=== PATIENT | female | born 1945 | race Caucasian/White ===

== ENCOUNTER → 2016-05-27 | Outpatient (CLI) | payer OTHER ==
[~2016-05-27] MED LIST: B-COTAB18 PO; CARV3.12 PO; CARV6.252 PO; CHOL100010 PO; CLR10 PO; CPR500 PO; FURO-85 PO; HYDR0.5T PO; LACT1CAP6 PO; LISI-461 PO; LORA10CA2 PO; MAGN1CAP2 PO; METF1000 PO; MOME50SP5; MTR500 PO; MULT-506 PO; OMEG10007 PO; OMEP20TA PO; ROSU5TAB PO; UBIQ1CAP8 PO
== END | disposition home or self-care (01) ==
LOC: C.LAB1850 11:50
PROVIDERS: ATTEND Family Medicine
DX: D64.9 Anemia, unspecified (principal)

== ENCOUNTER → 2016-06-25 | Day surgery (SDC) | payer OTHER ==
[2016-06-17 08:43] VITALS: BMI 23.0
[~2016-06-25] VITALS: Ht 157.5 cm; Wt 59.1 kg
[~2016-06-25] MED LIST changes: -CARV3.12 PO; -CPR500 PO; +LIDOCAINE HCL 2% 2 ML VIAL (20MG/ML) ONE; -LORA10CA2 PO; -MTR500 PO; -OMEP20TA PO; +PROPOFOL IV EMULSION 10 MG/ML 20 ML VIAL IV ONE; +SODIUM CHLORIDE 0.9% 500ML 500 ML IV ONE
[2016-06-25 10:48] VITALS: Ht 157.5 cm; Wt 59.1 kg
--- NOTE | 2016-06-25 11:28 | Endo History and Physical ---
History & Physical Date of Service: Jun 25, 2016. Chief Complaint: FOLLOW UP FOR GI BLEED IN MARCH 2016 Referring Physician: DR GUZMAN History of Present Illness 71 yo CF who presents for Colonoscopy secondary to GI bleeding. Past Surgical History Hx Cardiac Surgery: No Hx Internal Defibrillator: No Hx Pacemaker: No Hx Abdominal Surgery: Yes (LYUBOV BSO) Hx of Implantable Prosthesis: No (SINUS SURGERY, DENTAL EXTR AND IMPLANTS) Hx Post-Op Nausea and Vomiting: Yes (PONV) Hx Cancer Surgery: No Hx Thoracic Surgery: No Hx Orthopedic: Yes (ORIF RIGHT ANKLE, RIGHT ROTATOR CUFF REPAIR) Hx Urinary Tract Surgery: No Family History None Social History Smoking Status: Former Smoker Hx Substance Use: Yes Hx Alcohol Use: Yes (2 A WEEK ) Allergies Coded Allergies: Ezetimibe (Unverified Allergy, Unknown, TIRED, 06/25/16) Simvastatin (Unverified Allergy, Unknown, TIRED, 06/25/16) Tramadol (Verified Adverse Reaction, Mild, GI UPSET, 06/25/16) Atorvastatin (Verified Adverse Reaction, Unknown, gi upset, 06/25/16) Current Medications Reported Home Medications Medications Dose Route/Sig Max Daily Dose Days Date Category Dose Instructions Claritin (Loratadine) 10 Mg Tab 10 Mg PO QAM 06/17/16 Reported Vitamin D (Cholecalciferol) 1,000 Unit Tab 1 Tab PO QAM 06/17/16 Reported Vitamin B Complex (B-Complex Vitamins) 1 Tab Tab 1 Tab PO QAM 06/17/16 Reported Multivitamin (Multivitamins) Tab 1 Tab PO QAM 06/17/16 Reported Zestril (Lisinopril) 10 Mg Tab 10 Mg PO HS 06/17/16 Reported Glucophage (Metformin Hcl) 1,000 Mg Tab 1,000 Mg PO QAM 06/17/16 Reported Lasix (Furosemide) 20 Mg Tab 20 Mg PO QAM 06/17/16 Reported Coreg (Carvedilol) 6.25 Mg Tab 2 Tab PO BID 06/17/16 Reported Crestor (Rosuvastatin Calcium) 5 Mg Tab 5 Mg PO MOFR 04/09/16 Reported Mondays and Fridays Magnesium (Magnesium Oxide (Mg Supplement) 400 Mg Cap 400 Mg PO QAM 06/14/14 Reported Nasonex (Mometasone Furoate) [place] 1 [place] NA BID 06/14/14 Reported Probiotic (Lactobacillus) 1 Cap Cap 1 Cap PO QAM 06/14/14 Reported Ubiquinol 100 Mg Cap 100 Mg PO QAM 06/14/14 Reported Plaquenil (Hydroxychloroquine Sulfate) 200 Mg Tab 200 Mg PO HS 07/13/10 Reported [place]-3 (Fish Oil) 1 Ea Cap 1 Gm PO TID 11/07/08 Reported Vital Signs Weight (Kilograms): 59.09 Height (Feet): 5 Height (Inches): 2 Date Time Temp Pulse Resp B/P Pulse Ox O2 Delivery O2 Flow Rate FiO2 06/25/16 11:05 36.6 79 16 123/73 98 Room Air Physical Exam General Appearance: WD/WN, no apparent distress Respiratory/Chest: Auscultation: breath sounds normal Cardiovascular: Heart Auscultation: RRR Abdomen: Bowel Sounds: normal Inspection & Palpation: soft, non-distended, no tenderness, guarding & rebound Assessment and Plan Assessment: 71 yo CF who presents for Colonoscopy secondary to GI bleeding. Plan: Proceed with colonoscopy.
--- NOTE | 2016-06-25 11:52 | Anesthesiology Progress Note ---
Anesthesia Post Op Note Date & Time Jun 25, 2016 at 11:53 Vital Signs Pain Intensity: 0 Vital Signs Past 12 Hours Date Time Temp Pulse Resp B/P Pulse Ox O2 Delivery O2 Flow Rate FiO2 06/25/16 11:05 36.6 79 16 123/73 98 Room Air Notes Mental Status: alert / awake / arousable, participated in evaluation Pt Amnestic to Procedure: Yes Nausea / Vomiting: adequately controlled Pain: adequately controlled Airway Patency, RR, SpO2: stable & adequate BP & HR: stable & adequate Hydration State: stable & adequate Anesthetic Complications: no major complications apparent
--- NOTE | 2016-06-25 11:52 | Discharge Instructions ---
Endoscopy Patient Instructions Date / Procedure(s) Performed Jun 25, 2016. Colonoscopy Allergy Information Coded Allergies: Ezetimibe (Unverified Allergy, Unknown, TIRED, 06/25/16) Simvastatin (Unverified Allergy, Unknown, TIRED, 06/25/16) Tramadol (Verified Adverse Reaction, Mild, GI UPSET, 06/25/16) Atorvastatin (Verified Adverse Reaction, Unknown, gi upset, 06/25/16) Discharge Date / Findings Jun 25, 2016. Diverticulosis Internal hemorrhoids Medication Instructions Stopped Medication(s): TOLD ONLY TO TAKE COREG TODAY OK to resume all medications today as prescribed. Reported Home Medications Medications Dose Route/Sig Max Daily Dose Days Date Category Dose Instructions Claritin (Loratadine) 10 Mg Tab 10 Mg PO QAM 06/17/16 Reported Vitamin D (Cholecalciferol) 1,000 Unit Tab 1 Tab PO QAM 06/17/16 Reported Vitamin B Complex (B-Complex Vitamins) 1 Tab Tab 1 Tab PO QAM 06/17/16 Reported Multivitamin (Multivitamins) Tab 1 Tab PO QAM 06/17/16 Reported Zestril (Lisinopril) 10 Mg Tab 10 Mg PO HS 06/17/16 Reported Glucophage (Metformin Hcl) 1,000 Mg Tab 1,000 Mg PO QAM 06/17/16 Reported Lasix (Furosemide) 20 Mg Tab 20 Mg PO QAM 06/17/16 Reported Coreg (Carvedilol) 6.25 Mg Tab 2 Tab PO BID 06/17/16 Reported Crestor (Rosuvastatin Calcium) 5 Mg Tab 5 Mg PO MOFR 04/09/16 Reported Mondays and Fridays Magnesium (Magnesium Oxide (Mg Supplement) 400 Mg Cap 400 Mg PO QAM 06/14/14 Reported Nasonex (Mometasone Furoate) [place] 1 [place] NA BID 06/14/14 Reported Probiotic (Lactobacillus) 1 Cap Cap 1 Cap PO QAM 06/14/14 Reported Ubiquinol 100 Mg Cap 100 Mg PO QAM 06/14/14 Reported Plaquenil (Hydroxychloroquine Sulfate) 200 Mg Tab 200 Mg PO HS 07/13/10 Reported [place]-3 (Fish Oil) 1 Ea Cap 1 Gm PO TID 11/07/08 Reported Provider Instructions Activity Restrictions - No exercising or heavy lifting for 24 hours. - Do not drink alcohol the day of the procedure. - Do not drive a car or operate machinery until the day after the procedure. - Do not make any important decisions or sign important papers in 24 hours after the procedure. Following Day: - Return to full activity which may include returning to work/school. Diet Start your diet with liquids and light foods (jello, soup, juice, toast). Then eat your usual diet if not nauseated. Treatment For Common After Affects For mild abdominal pain, bloating, or excessive gas: - Rest - Eat lightly - Lie on right side Follow-Up Information Follow-up with DR GUZMAN as scheduled Anesthesia Information What You Should Know You have had a procedure that required some medicine to reduce anxiety and discomfort. This treatment is called moderate sedation. After receiving the treatment, you may be sleepy, but you will be able to breathe on your own. The effects of the treatment may last for several hours. Follow these instructions along with Activity/Diet recommendations noted above: * Do NOT do anything where dizziness or clumsiness would be dangerous. * Rest quietly at home today, then you can be up and about tomorrow. * Have a responsible person stay with you the rest of today. * You may have had an I.V. today. If so, you may take the dressing off later today. Recommendations Call your doctor if: * Trouble breathing * Continuous vomiting for more than 24 hours * Temperature above 101 degrees * Severe abdominal pain or bloating * Pain not relieved by pain medicine ordered * There is increased drainage or redness from any incision * A large amount of rectal bleeding greater than 2-3 tablespoons. (If you had a polyp/s removed or have hemorrhoids, a small amount of blood - from the rectum is to be expected.) * You have any unanswered questions or concerns. IN THE EVENT OF A SERIOUS EMERGENCY, GO TO THE NEAREST EMERGENCY ROOM Your discharge instructions were prepared by provider Cipriano Levy. Patient Instructions Signature Page Tamia Dave Patient (or Guardian) Signature/Date: I have read and understand the instructions given to me by my caregivers. Caregiver/RN/Doctor Signature/Date: The above-named patient and/or guardian has received patient instructions on this date. + Original Patient Signature Page (only) stays with chart. Please make copy for patient.
--- NOTE | 2016-06-25 11:56 | GI REPORT ---
Procedure Date: 06/25/2016 11:29 AM Procedure: Colonoscopy Indications: Screening for colorectal malignant neoplasm Medicines: Monitored Anesthesia Care Complications: No immediate complications. Estimated Blood Loss: Estimated blood loss: none. Procedure: Pre-Anesthesia Assessment: - Prior to the procedure, a History and Physical was performed, and patient medications and allergies were reviewed. The patient's tolerance of previous anesthesia was also reviewed. The risks and benefits of the procedure and the sedation options and risks were discussed with the patient. All questions were answered, and informed consent was obtained. Prior Anticoagulants: The patient has taken no previous anticoagulant or antiplatelet agents. ASA Grade Assessment: III - A patient with severe systemic disease. After reviewing the risks and benefits, the patient was deemed in satisfactory condition to undergo the procedure. After I obtained informed consent, the scope was passed under direct vision. Throughout the procedure, the patient's blood pressure, pulse, and oxygen saturations were monitored continuously. The Scope was introduced through the anus and advanced to the terminal ileum. The colonoscopy was performed without difficulty. The patient tolerated the procedure well. The quality of the bowel preparation was good. The terminal ileum, ileocecal valve, appendiceal orifice, and rectum were photographed. Findings: Multiple small-mouthed diverticula were found in the sigmoid colon and in the descending colon. Non-bleeding internal hemorrhoids were found during retroflexion. The hemorrhoids were small. Impression: - Diverticulosis in the sigmoid colon and in the descending colon. - Non-bleeding internal hemorrhoids. - No specimens collected. Recommendation: - Resume previous diet. - Continue present medications. - Return to primary care physician. - No repeat colonoscopy due to age and the absence of advanced adenomas. Cipriano Levy, DO 06/25/2016 11:55:49 AM This report has been signed electronically. Note Initiated On: 06/25/2016 11:29 AM
[2016-06-25 12:15] VITALS: BP 99/59; PULSE 86; O2SAT 99
== END | disposition home or self-care (01) ==
LOC: C.GI 10:43
PROVIDERS: ATTEND Internal Medicine
DX: Z12.11 Encounter for screening for malignant neoplasm of colon (principal); K57.30 Diverticulosis of large intestine without perforation or abscess without bleeding; K64.8 Other hemorrhoids; Z98.890 Other specified postprocedural states; Z87.891 Personal history of nicotine dependence; Z88.5 Allergy status to narcotic agent; Z88.8 Allergy status to other drugs, medicaments and biological substances

== ENCOUNTER → 2016-07-24 | Outpatient (CLI) | payer OTHER ==
[~2016-07-24] MED LIST changes: -LIDOCAINE HCL 2% 2 ML VIAL (20MG/ML) ONE; -PROPOFOL IV EMULSION 10 MG/ML 20 ML VIAL IV ONE; -SODIUM CHLORIDE 0.9% 500ML 500 ML IV ONE
--- NOTE | 2016-07-24 09:14 | DIAGNOSTIC IMAGING REPORT ---
CHEST 2 VIEWS ROUTINE CLINICAL HISTORY: R05 [id number] cough. Dyspnea. COMPARISON STUDY: 08/01/2014 FINDINGS: The bones soft tissues and hemidiaphragms are normal. The cardiomediastinal silhouette is normal. The lungs are clear. The pulmonary vasculature is normal. IMPRESSION: Negative chest. Electronically signed by: Eleazar Harding M.D. 07/24/2016 9:12 AM Dictated Date/Time: 07/24/2016 9:12 AM
== END | disposition home or self-care (01) ==
LOC: C.RAD1850 08:59
PROVIDERS: ATTEND Family Medicine
DX: R05 Cough (principal)

== ENCOUNTER → 2016-08-08 | Outpatient (CLI) | payer OTHER ==
[2016-08-08 10:17] LABS: ALT/SGPT 31 U/L (12-78); BLOOD UREA NITROGEN 14 mg/dl (7-18); BUN/CREATININE RATIO 16.6 (10-20); CALCIUM 9.2 mg/dl (8.5-10.1); CARBON DIOXIDE 28 mmol/L (21-32); CHLORIDE 108 mmol/L (98-107); CHOLESTEROL 239 mg/dl (0-200); CREATININE 0.86 mg/dl (0.60-1.20); GLUCOSE 101 mg/dl (70-99); POTASSIUM 4.2 mmol/L (3.5-5.1); SODIUM 143 mmol/L (136-145); TRIGLYCERIDES 221 mg/dl (0-150); VERY LOW DENSITY LIPOPROT CALC 44 mg/dl
[2016-08-08 10:20] LABS: ALKALINE PHOSPHATASE 65 U/L (45-117); AST/SGOT 15 U/L (15-37); CHOLESTEROL/HDL RATIO 3.5; HDL CHOLESTEROL 69 mg/dl; LDL CHOLESTEROL CALCULATED 126 mg/dl
== END | disposition home or self-care (01) ==
LOC: C.LAB1850 07:28
PROVIDERS: ATTEND Family Medicine
DX: M85.80 Other specified disorders of bone density and structure, unspecified site (principal); E78.5 Hyperlipidemia, unspecified; R73.01 Impaired fasting glucose; I42.9 Cardiomyopathy, unspecified; E55.9 Vitamin D deficiency, unspecified; D64.9 Anemia, unspecified

== ENCOUNTER → 2016-12-10 | Outpatient (CLI) | payer OTHER ==
--- NOTE | 2016-12-10 15:17 | DIAGNOSTIC IMAGING REPORT ---
CT OF THE ABDOMEN AND PELVIS WITH CONTRAST CLINICAL HISTORY: Diffuse abdominal pain. Evaluate for acute diverticulitis. COMPARISON STUDY: CT of the abdomen and pelvis April 09, 2016. TECHNIQUE: Following IV administration of 94 mL of Optiray-320, axial images of the abdomen and pelvis were obtained from the lung bases to the proximal femurs. Images were reviewed in the axial, sagittal, and coronal planes. IV contrast was administered without complication. Oral contrast was administered. CT DOSE: 296.16 mGy.cm FINDINGS: There is fatty infiltration of the liver. Extensive atherosclerotic calcification of the splenic artery is noted. The spleen, adrenal glands, kidneys and pancreas are normal. There is no evidence for a bowel obstruction. There is sigmoid diverticulosis without evidence for acute diverticulitis. Caliber and wall thickness of small and large bowel are normal. The appendix is normal. No suspicious skeletal lesions are present. There is no hydronephrosis. IMPRESSION: 1. No acute process within the abdomen or pelvis. 2. Sigmoid diverticulosis without evidence for acute diverticulitis. 3. Fatty liver. Electronically signed by: Sunil Jay M.D. 12/10/2016 3:16 PM Dictated Date/Time: 12/10/2016 3:07 PM
== END | disposition home or self-care (01) ==
LOC: C.CTS 11:57
PROVIDERS: ATTEND Physician Assistant
DX: K57.30 Diverticulosis of large intestine without perforation or abscess without bleeding (principal); R19.7 Diarrhea, unspecified; K57.92 Diverticulitis of intestine, part unspecified, without perforation or abscess without bleeding

== ENCOUNTER → 2017-02-06 | Outpatient (CLI) | payer OTHER ==
--- NOTE | 2017-02-06 16:38 | DIAGNOSTIC IMAGING REPORT ---
LEFT FOOT MIN 3 VIEWS ROUTINE CLINICAL HISTORY: M79.672 Acute foot pain, localized to the second metatarsal phalangeal joint. COMPARISON: None. DISCUSSION: The bones are mildly osteopenic. No fractures or dislocations are visualized. There is a plantar calcaneal spur. There are degenerative changes the level the first metatarsal phalangeal joint. No destructive lesions are visualized. IMPRESSION: 1. No fractures identified 2. No destructive lesions identified 3. Degenerative changes the level the first metatarsal phalangeal joint Electronically signed by: Alfredo Mederos M.D. 02/06/2017 4:36 PM Dictated Date/Time: 02/06/2017 4:35 PM
== END | disposition home or self-care (01) ==
LOC: C.RAD1850 16:24
PROVIDERS: ATTEND Family Medicine Adult Medicine
DX: M19.072 Primary osteoarthritis, left ankle and foot (principal)

== ENCOUNTER → 2017-02-24 | Outpatient (CLI) | payer OTHER ==
--- NOTE | 2017-02-24 15:45 | MAMMOGRAPHY REPORT ---
BILATERAL DIGITAL SCREENING MAMMOGRAM WITH CAD: 02/24/2017 CLINICAL HISTORY: Routine screening. Patient has no complaints. TECHNIQUE: Current study was also evaluated with a Computer Aided Detection (CAD) system. COMPARISON: Comparison is made to exams dated: 04/03/2015 mammogram, 04/01/2014 mammogram, 02/15/2013 m ammogram, 02/10/2012 mammogram, 02/06/2011 mammogram, and 02/02/2010 mammogram - [facility] enter. BREAST COMPOSITION: There are scattered areas of fibroglandular density in both breasts. FINDINGS: The parenchymal pattern is similar to prior mammograms. No developing mass, architectural distortion or cluster of suspicious microcalcifications is seen in either breast. IMPRESSION: ACR BI-RADS CATEGORY 2: BENIGN There is no mammographic evidence of malignancy. A 1 year screening mammogram is recommended. The pa tient will receive written notification of the results. Approximately 10% of breast cancers are not detected with mammography. A negative mammographic report should not delay biopsy if a clinically suggestive mass is present. Parvin Peralta M.D. ay/:02/24/2017 13:27:00 Material Flow Analyst: Fina Simon RT(R)(M)(BD), [facility] letter sent: Normal 1/2 BI-RADS Code: ACR BI-RADS Category 2: Benign
== END | disposition home or self-care (01) ==
LOC: C.MAMM 12:55
PROVIDERS: ATTEND Obstetrics & Gynecology
DX: Z12.31 Encounter for screening mammogram for malignant neoplasm of breast (principal)

== ENCOUNTER → 2017-07-16 | Outpatient (CLI) | payer OTHER ==
[~2017-07-16] MED LIST changes: +CIPR-255 PO; +CRG625 PO; +HYDR200T5 PO; +LISI-729 PO; +METR-163 PO; +ONDA4TAB10 SL
[2017-07-16 12:08] LABS: BASO % 0.7 %; BASO ABS # 0.05 K/uL (0-0.2); EOS % 2.6 %; EOS ABS # 0.18 K/uL (0-0.5); HEMATOCRIT 43.7 % (37-47); HEMOGLOBIN 15.3 g/dL (12.0-16.0); IG# 0.02 K/uL (0.00-0.02); LYMPH % 27.4 %; LYMPH ABS # 1.91 K/uL (1.2-3.4); MEAN CELL VOLUME 90.5 fL (80-100); MEAN CORPUSCULAR HEMOGLOBIN 31.7 pg (25-34); MEAN PLATELET VOLUME 9.2 fL (7.4-10.4); MONO % 9.7 %; MONO ABS # 0.68 K/uL (0.11-0.59); NEUT % 59.3 %; NEUT ABS # 4.14 K/uL (1.4-6.5); PLATELET COUNT 252 K/uL (130-400); RED CELL DISTRIBUTION WIDTH CV 12.9 % (11.5-14.5); RED CELL DISTRIBUTION WIDTH SD 42.8 fL (36.4-46.3); WHITE BLOOD COUNT 6.98 K/uL (4.8-10.8)
[2017-07-16 12:40] LABS: BLOOD UREA NITROGEN 15 mg/dl (7-18); CALCIUM 9.7 mg/dl (8.5-10.1); CARBON DIOXIDE 31 mmol/L (21-32); CREATININE 0.96 mg/dl (0.60-1.20); GLUCOSE 88 mg/dl (70-99); POTASSIUM 4.1 mmol/L (3.5-5.1); SODIUM 137 mmol/L (136-145)
== END | disposition home or self-care (01) ==
LOC: C.LAB1850 11:16
PROVIDERS: ATTEND Family Medicine
DX: R10.32 Left lower quadrant pain (principal); K57.90 Diverticulosis of intestine, part unspecified, without perforation or abscess without bleeding

== ENCOUNTER 2017-07-28 15:17 | Emergency (ER) | payer OTHER ==
[~2017-07-28] VITALS: Ht 157.5 cm; Wt 61.4 kg
[~2017-07-28 15:17] MED LIST changes: -CRG625 PO; -HYDR200T5 PO; -LISI-729 PO; -METF1000 PO; -ROSU5TAB PO; -UBIQ1CAP8 PO
[2017-07-28 15:20] VITALS: TEMP 36.8; Ht 157.5 cm; Wt 61.4 kg
[2017-07-28] MEDS ORDERED: SODIUM CHLORIDE 0.9% 500ML 500 ML IV STA (15:38)
[2017-07-28] MEDS ORDERED: ACETAMINOPHEN IV 100 ML IV STA (15:38)
[2017-07-28] MEDS ORDERED: OPTIRAY 320 IV PRN (15:45)
[2017-07-28 15:58] LABS: BASO % 0.7 %; BASO ABS # 0.04 K/uL (0-0.2); EOS % 3.1 %; EOS ABS # 0.17 K/uL (0-0.5); HEMATOCRIT 43.7 % (37-47); HEMOGLOBIN 15.7 g/dL (12.0-16.0); IG# 0.01 K/uL (0.00-0.02); LYMPH % 35.5 %; LYMPH ABS # 1.96 K/uL (1.2-3.4); MEAN CELL VOLUME 89.9 fL (80-100); MEAN CORPUSCULAR HEMOGLOBIN 32.3 pg (25-34); MEAN CORPUSCULAR HGB CONC 35.9 g/dl (32-36); MEAN PLATELET VOLUME 9.1 fL (7.4-10.4); MONO % 10.7 %; MONO ABS # 0.59 K/uL (0.11-0.59); NEUT % 49.8 %; NEUT ABS # 2.75 K/uL (1.4-6.5); PLATELET COUNT 302 K/uL (130-400); RED CELL DISTRIBUTION WIDTH CV 12.7 % (11.5-14.5); RED CELL DISTRIBUTION WIDTH SD 41.6 fL (36.4-46.3); WHITE BLOOD COUNT 5.52 K/uL (4.8-10.8)
--- NOTE | 2017-07-28 16:11 | EMERGENCY ROOM VISIT NOTE ---
ED Visit Note First contact with patient: 15:24 CHIEF COMPLAINT: Abdominal pain and chills HISTORY OF PRESENTING ILLNESS: This is a 72-year-old female who presents to the emergency department with abdominal pain that started 3 days ago. Patient states that she was recently diagnosed with acute diverticulitis on 07/18, she was treated with ciprofloxacin and Flagyl which she completed today. She states that initially she was feeling much better and her abdominal pain had completely gone away, but her pain started to come back 3 days ago and has been getting progressively worse. She has also been feeling more tired and fatigued the past few days. Today she developed some chills and body aches, no known fevers. She has not taken any Tylenol today. She states that she has been having associated nausea and loose stools the entire time that have not improved , states that she is having 7-8 small loose stools per day. She denies any bloody or black stools and has not been vomiting. She saw her PCP today who sent her to the ER for further evaluation. She denies any other symptoms of headaches, vision changes, chest pain, shortness of breath, back pain, urinary symptoms, or rash. REVIEW OF SYSTEMS: A complete 10 point review of systems was reviewed with the patient with pertinent positives and negatives as per history of present illness. All else were negative. PAST MEDICAL HISTORY: Reviewed in chart. SOCIAL HISTORY: Lives at home. She denies tobacco use, alcohol use, recreational drug use. ALLERGIES: Reviewed in chart. PHYSICAL EXAM: CONSTITUTIONAL: Pleasant and cooperative. No acute distress. Mildly dehydrated , but otherwise well appearing and well nourished. HEENT: Normocephalic, atraumatic. Pupils equal, round and reactive to light, EOMI. TMs normal. Pharynx normal. Tacky mucous membranes. No cervical adenopathy. NECK: Supple, full active range of motion without discomfort. RESPIRATORY: Clear to auscultation bilaterally with no wheezing, crackles, rhonchi or stridor. Equal expansion bilaterally. CARDIOVASCULAR: Regular rate and rhythm with no murmurs, rubs or gallops. Normal peripheral perfusion. No edema. GASTROINTESTINAL: Soft, moderate tenderness in the entire left abdomen, most tender in the left lower quadrant. No rebound tenderness or guarding. Nondistended. No palpable masses or HSM. Bowel sounds present in all quadrants. No CVA tenderness. MUSCULOSKELETAL: Full range of motion of all joints without discomfort. INTEGUMENTARY: No rash or other significant dermatologic conditions noted. NEUROLOGIC: Alert and oriented X 4 with normal affect. Normal strength and sensation upper extremities. No focal neurologic deficits noted. Normal speech. Normal gait observed. ED COURSE AND MEDICAL DECISION MAKING: CC: Patient presenting with complaint of abdominal pain DIFFERENTIAL DIAGNOSIS: Includes, but not limited to worsening diverticulitis including abscess, fistula, perforation, gastroenteritis, pancreatitis, cholecystitis, colitis, UTI, small bowel obstruction, ileus, dehydration, among others. INTERPRETATION OF LABS: No leukocytosis, no anemia, no significant electrolyte abnormalities, normal renal function, normal liver enzymes and lipase. UA negative. IMAGING: ABD/PELVIS IV CONTRAST ONLY CT DOSE: 524.97 mGycm HISTORY: Pain worsening abdominal pain, chills, eval abscess, perf TECHNIQUE: Multiaxial CT images of the abdomen and pelvis were performed following the use of intravenous contrast. A dose lowering technique was utilized adhering to the principles of ALARA. COMPARISON STUDY: 07/18/2017 FINDINGS: Lung bases remain clear. Stable fatty infiltration of liver. Kidneys enhance uniformly. No evidence for hydronephrosis. Findings of diverticulitis involving the mid descending colon are considered stable. No evidence for abscess or collection. Findings of acute diverticulitis involving the sigmoid colon appear at least mildly improved. The wall thickening appears somewhat diminished as does the pericolonic infiltrative change. No evidence for drainable abscess or collection. Mild reactive small bowel ileus. IMPRESSION: 1. Acute diverticulitis of the mid descending and sigmoid colonic regions. 2. Mild improvement of the findings of the sigmoid colon with stable findings of the mid descending colon. 3. No evidence for abscess collection or obstruction. 4. Mild reactive small bowel ileus. MEDICATION RECONCILIATION: I attest that I have personally reviewed the patient 's current medication list. INITIAL VITAL SIGNS REVIEW: I reviewed the patient's initial vital signs and interpret them as follows: T: Afebrile; BP: Hypertensive; HR: Within normal limits; RR: Within normal limits; Pulse Ox: Within normal limits on room air. Blood pressure screening: The patient was found to have an elevated blood pressure and was referred to their primary doctor for recheck and further treatment. SUMMARY: Patient was evaluated at bedside, history and physical exam performed. Patient is alert and oriented, no acute distress, sitting in a chair in the room. On exam, she does have moderate tenderness to the left abdomen, most tender in the left lower quadrant. No rebound tenderness or guarding. Patient does also appear to be mildly dehydrated. I did review the patient's records, noting her recent visit and CT findings consistent with acute diverticulitis. Orders were placed at bedside for labs, UA, IV fluids for hydration, IV Tylenol for pain, CT abdomen/pelvis with IV contrast to evaluate for sequela of diverticulitis. Patient discussed with Dr. Dupree, who agrees with my assessment and plan. Labs and imaging reviewed as above, all appears to be improving from previous studies. Patient reassessed multiple times throughout ED stay, she has remained stable and her pain is improving. Patient has been tolerating oral fluids without difficulty. Her abdominal tenderness is improved with Tylenol. I discussed the results with the patient, and discussed option of seeking admission versus extending her oral antibiotic treatment for her diverticulitis. Given that the patient has a normal white count, has been afebrile, tolerating PO, and appears to be improving on CT, I feel that she can safely be discharged home. Patient did state that she preferred to be discharged home if possible. I will extend her ciprofloxacin and Flagyl treatment for another 7 days. She was given doses of these in the ED. I did instruct the patient to follow closely with her primary care provider for ongoing assessment and management. Patient was also given strict return precautions should her symptoms worsen, she verbalized understanding. Patient was discharged home in stable condition and ambulatory. Problem List Medical Problems: (1) Acute diverticulitis Status: Resolved (2) Bronchitis Status: Resolved (3) Diab Kate Wo Compl, Type Ii Or Unspec Type, Not Uncntrld Status: Chronic (4) Dyspnea Status: Resolved (5) Esophageal Reflux Status: Chronic (6) Essential (Primary) Hypertension Status: Chronic (7) Hyperlipidemia, Unspecified Status: Chronic (8) Lower GI bleeding Status: Resolved (9) Rectal bleeding Status: Resolved Surgical Problems: (1) H/O: hysterectomy Status: Resolved (2) Lens Replacement Nec Status: Resolved (3) S/P rotator cuff repair Status: Resolved Current/Historical Medications Scheduled B-Complex Vitamins (Vitamin B Complex), 1 TAB PO QAM Carvedilol (Coreg), 2 TAB PO BID Carvedilol (Carvedilol), 12.5 MG PO AMPM Ciprofloxacin Hcl (Cipro), 500 MG PO BID Fish Oil (Farwell-3), 1 GM PO TID Furosemide (Lasix), 20 MG PO QAM Hydroxychloroquine Sulfate (Plaquenil), 200 MG PO DAILY Lactobacillus (Probiotic), 1 CAP PO QAM Lisinopril (Prinivil), 5 MG PO DAILY Magnesium Oxide (Mg Supplement (Magnesium), 400 MG PO QAM Metronidazole (Flagyl), 500 MG PO TID Multivitamin (Multivitamin), 1 TAB PO QAM Allergies Coded Allergies: Tramadol (Verified Adverse Reaction, Mild, GI UPSET, 07/28/17) Atorvastatin (Verified Adverse Reaction, Unknown, gi upset, 07/28/17) Ezetimibe (Verified Adverse Reaction, Unknown, TIRED, 07/28/17) Simvastatin (Verified Adverse Reaction, Unknown, TIRED, 07/28/17) Vital Signs Date Time Temp Pulse Resp B/P (MAP) Pulse Ox O2 Delivery O2 Flow Rate FiO2 07/28/17 19:12 88 18 130/72 98 07/28/17 18:39 72 20 145/76 95 Room Air 07/28/17 17:35 63 20 133/79 97 Room Air 07/28/17 17:08 61 20 135/69 95 Room Air 07/28/17 16:26 67 07/28/17 15:20 36.8 67 16 162/85 95 Room Air Laboratory Results 07/28/17 15:50 Red Blood Count 4.86, Mean Corpuscular Volume 89.9, Mean Corpuscular Hemoglobin 32.3, Mean Corpuscular Hemoglobin Concent 35.9, Mean Platelet Volume 9.1, Neutrophils (%) (Auto) 49.8, Lymphocytes (%) (Auto) 35.5, Monocytes (%) (Auto) 10.7, Eosinophils (%) (Auto) 3.1, Basophils (%) (Auto) 0.7, Neutrophils # (Auto ) 2.75, Lymphocytes # (Auto) 1.96, Monocytes # (Auto) 0.59, Eosinophils # (Auto ) 0.17, Basophils # (Auto) 0.04 07/28/17 15:50 Test 07/28/17 15:50 07/28/17 16:16 White Blood Count 5.52 K/uL (4.8-10.8) Red Blood Count 4.86 M/uL (4.2-5.4) Hemoglobin 15.7 g/dL (12.0-16.0) Hematocrit 43.7 % (37-47) Mean Corpuscular Volume 89.9 fL (80-100) Mean Corpuscular Hemoglobin 32.3 pg (25-34) Mean Corpuscular Hemoglobin Concent 35.9 g/dl (32-36) Platelet Count 302 K/uL (130-400) Mean Platelet Volume 9.1 fL (7.4-10.4) Neutrophils (%) (Auto) 49.8 % Lymphocytes (%) (Auto) 35.5 % Monocytes (%) (Auto) 10.7 % Eosinophils (%) (Auto) 3.1 % Basophils (%) (Auto) 0.7 % Neutrophils # (Auto) 2.75 K/uL (1.4-6.5) Lymphocytes # (Auto) 1.96 K/uL (1.2-3.4) Monocytes # (Auto) 0.59 K/uL (0.11-0.59) Eosinophils # (Auto) 0.17 K/uL (0-0.5) Basophils # (Auto) 0.04 K/uL (0-0.2) RDW Standard Deviation 41.6 fL (36.4-46.3) RDW Coefficient of Variation 12.7 % (11.5-14.5) Immature Granulocyte % (Auto) 0.2 % Immature Granulocyte # (Auto) 0.01 K/uL (0.00-0.02) Anion Gap 9.0 mmol/L (3-11) Est Creatinine Clear Calc Drug Dose 54.3 ml/min Estimated GFR () 83.4 Estimated GFR (Non- 72.0 BUN/Creatinine Ratio 14.2 (10-20) Calcium Level 9.3 mg/dl (8.5-10.1) Total Bilirubin 0.4 mg/dl (0.2-1) Direct Bilirubin 0.1 mg/dl (0-0.2) Aspartate Amino Transf (AST/SGOT) 22 U/L (15-37) Alanine Aminotransferase (ALT/SGPT) 36 U/L (12-78) Alkaline Phosphatase 70 U/L (45-117) Total Protein 7.7 gm/dl (6.4-8.2) Albumin 3.7 gm/dl (3.4-5.0) Lipase 241 U/L (73-393) Urine Color YELLOW Urine Appearance CLEAR (CLEAR) Urine pH 6.5 (4.5-7.5) Urine Specific [place]ley 1.014 (1.000-1.030) Urine Protein NEG (NEG) Urine Glucose (UA) NEG (NEG) Urine Ketones NEG (NEG) Urine Occult Blood NEG (NEG) Urine Nitrite NEG (NEG) Urine Bilirubin NEG (NEG) Urine Urobilinogen NEG (NEG) Urine Leukocyte Esterase NEG (NEG) Medications Administered Medications (Trade) Dose Ordered Sig/Blue Route Start Time Stop Time Status Last Admin Dose Admin Sodium Chloride 500 ml @ 999 mls/hr Q31M STAT IV 07/28/17 15:38 07/28/17 16:08 DC 07/28/17 15:51 999 MLS/HR Acetaminophen 100 ml @ 400 mls/hr NOW STAT IV 07/28/17 15:38 07/28/17 15:52 DC 07/28/17 15:52 400 MLS/HR Ciprofloxacin (Cipro Tab) 500 mg NOW STAT PO 07/28/17 18:24 07/28/17 18:26 DC 07/28/17 18:38 500 MG Metronidazole (Flagyl Tab) 500 mg NOW STAT PO 07/28/17 18:24 07/28/17 18:26 DC 07/28/17 18:38 500 MG Departure Information Impression Primary Impression: Diverticulitis Dispostion Home / Self-Care Condition GOOD Prescriptions Metronidazole (Flagyl) 500 Mg Tab 500 MG PO TID for Pain for 7 Days, #21 TAB For Initial Treatment Prov: Maria Isabel Christiansen CRNP 07/28/17 Ciprofloxacin Hcl (CIPRO) 500 Mg Tab 500 MG PO BID for 7 Days, #14 TAB Prov: Maria Isabel Christiansen CRNP 07/28/17 Referrals Jeniffer Keyes MD (PCP) Thom Linder M.D. Patient Instructions ED Diet Clear Liquid, ED Diverticulitis, [facility] Additional Instructions You have been treated in the Emergency Department your abdominal pain. Laboratory results and imaging studies have ruled out any emergent causes for your symptoms which would warrant admission or surgery. Your CT scan today shows some improvement in her diverticulitis. You are being placed on additional antibiotics for continued treatment of the infection. You were prescribed ciprofloxacin and Flagyl to be taken for 7 days. These medications are antibiotics. All antibiotics have the potential to cause diarrhea. Stop this medication and contact a medical provider if you were to develop any significant adverse side effects including: wheezing, shortness of breath, passing out, vomiting, or a diffuse rash. Always take antibiotics as directed and COMPLETE the ENTIRE course regardless of the improvement of your symptoms. For pain control, you can use the following [id number] medicines (if >12 yo): - Regular strength (325mg/tab) Tylenol (acetaminophen) 2 tabs every 4-6 hours as needed. Do not exceed 10 tablets in a 24 hour period. Avoid taking more than 3000 mg of Tylenol per day. This includes any other sources of acetaminophen you may take on a regular basis. - Regular strength (200 mg/tab) Advil (ibuprofen) 3 tabs every 6-8 6 hours as needed. Do not exceed a dose of 2400 mg per day. Stick with clear fluids and bland foods until her symptoms have improved. Drink plenty of fluids to stay well hydrated. Please follow-up with your primary care provider in the next 1-2 days to ensure that her symptoms are not getting worse. Call for an appointment. Return to the emergency department for severe worsening abdominal or back pain, worsening nausea, persistent vomiting and unable to tolerate fluids, vomiting blood, blood in your stool , fevers > 101, severe dizziness or passing out, or any other concerns.
[2017-07-28 16:17] LABS: ALBUMIN 3.7 gm/dl (3.4-5.0); CALCIUM 9.3 mg/dl (8.5-10.1); CREATININE 0.82 mg/dl (0.60-1.20)
[2017-07-28 16:19] LABS: TOTAL PROTEIN 7.7 gm/dl (6.4-8.2)
--- NOTE | 2017-07-28 17:00 | DIAGNOSTIC IMAGING REPORT ---
ABD/PELVIS IV CONTRAST ONLY CT DOSE: 524.97 mGycm HISTORY: Pain worsening abdominal pain, chills, eval abscess, perf TECHNIQUE: Multiaxial CT images of the abdomen and pelvis were performed following the use of intravenous contrast. A dose lowering technique was utilized adhering to the principles of ALARA. COMPARISON STUDY: 07/18/2017 FINDINGS: Lung bases remain clear. Stable fatty infiltration of liver. Kidneys enhance uniformly. No evidence for hydronephrosis. Findings of diverticulitis involving the mid descending colon are considered stable. No evidence for abscess or collection. Findings of acute diverticulitis involving the sigmoid colon appear at least mildly improved. The wall thickening appears somewhat diminished as does the pericolonic infiltrative change. No evidence for drainable abscess or collection. Mild reactive small bowel ileus. IMPRESSION: 1. Acute diverticulitis of the mid descending and sigmoid colonic regions. 2. Mild improvement of the findings of the sigmoid colon with stable findings of the mid descending colon. 3. No evidence for abscess collection or obstruction. 4. Mild reactive small bowel ileus. The above report was generated using voice recognition software. It may contain grammatical, syntax or spelling errors. Electronically signed by: Eleazar Harding M.D. 07/28/2017 4:59 PM Dictated Date/Time: 07/28/2017 4:52 PM
[2017-07-28] MEDS ORDERED: LISI-729 PO (18:07)
[2017-07-28] MEDS ORDERED: HYDR200T5 PO (18:07)
[2017-07-28] MEDS ORDERED: CRG625 PO (18:07)
[2017-07-28] MEDS ORDERED: CIPROFLOXACIN 500 MG TAB PO STA (18:24)
[2017-07-28] MEDS ORDERED: METRONIDAZOLE 250 MG TAB PO STA (18:24)
[2017-07-28] MEDS ORDERED: METR-163 PO (18:54)
[2017-07-28] MEDS ORDERED: CIPR-255 PO (18:54)
[2017-07-28 19:12] VITALS: BP 130/72; PULSE 88; O2SAT 98
== END 2017-07-28 19:23 | disposition home or self-care (01) ==
LOC: C.EDB 15:19 → C.EDC 19:23
DX: K57.32 Diverticulitis of large intestine without perforation or abscess without bleeding (principal); R10.9 Unspecified abdominal pain; Z79.899 Other long term (current) drug therapy; Z88.8 Allergy status to other drugs, medicaments and biological substances; E11.9 Type 2 diabetes mellitus without complications; I10 Essential (primary) hypertension; E78.5 Hyperlipidemia, unspecified

== ENCOUNTER → 2017-08-22 | Outpatient (CLI) | payer OTHER ==
[~2017-08-22] MED LIST changes: -CHOL100010 PO; -CLR10 PO; +CRG625 PO; -HYDR0.5T PO; +HYDR200T5 PO; -LISI-461 PO; +LISI-729 PO; -METR-163 PO; -MOME50SP5; -ONDA4TAB10 SL
[2017-08-22 11:37] LABS: BLOOD UREA NITROGEN 19 mg/dl (7-18); CALCIUM 9.7 mg/dl (8.5-10.1); CARBON DIOXIDE 29 mmol/L (21-32); CREATININE 0.92 mg/dl (0.60-1.20); GLUCOSE 91 mg/dl (70-99); POTASSIUM 4.4 mmol/L (3.5-5.1); SODIUM 137 mmol/L (136-145)
== END | disposition home or self-care (01) ==
LOC: C.LAB1850 10:12
PROVIDERS: ATTEND Internal Medicine Interventional Cardiology
DX: I50.22 Chronic systolic (congestive) heart failure (principal)

== ENCOUNTER → 2018-01-08 | Outpatient (CLI) | payer OTHER ==
[2018-01-08 12:36] LABS: BLOOD UREA NITROGEN 15 mg/dl (7-18); CARBON DIOXIDE 26 mmol/L (21-32); CREATININE 1.13 mg/dl (0.60-1.20); GLUCOSE 103 mg/dl (70-99); SODIUM 138 mmol/L (136-145)
== END | disposition home or self-care (01) ==
LOC: C.LAB1850 09:50
PROVIDERS: ATTEND Physician Assistant
DX: I50.22 Chronic systolic (congestive) heart failure (principal)